=== PATIENT | male | born 1960 | race Caucasian/White ===

== ENCOUNTER 2016-09-10 13:10 | Emergency (ER) | payer OTHER, MEDICARE, BC ==
[~2016-09-10] VITALS: Ht 180.3 cm; Wt 125.0 kg
[2016-09-10] MEDS ORDERED: MORPHINE SULFATE 8 MG/ML INJ ONE (13:21)
[2016-09-10] MEDS ORDERED: SODIUM CHLOR 0.9% 1000 ML INJ 1,000 ML IV SCH (13:22)
[2016-09-10 13:28] VITALS: BP 144/89; PULSE 72; RESP 22; TEMP 97.8; O2SAT 96
[2016-09-10] MEDS ORDERED: SODIUM CHLORIDE 0.9% FLUSH 5 ML FLUSH IVF PRN (13:30)
[2016-09-10 13:35] VITALS: RESP 22; O2SAT 97
[2016-09-10] MEDS ORDERED: LEVO75TA3 PO (13:41)
[2016-09-10 13:45] LABS: AUTOMATED NEUTROPHIL # 14.9 TH/MM3 (1.8-7.7); BASOPHIL # 0.1 TH/MM3 (0-0.2); BASOPHIL % 0.5 % (0.0-2.0); EOSINOPHIL # 0.2 TH/MM3 (0-0.4); EOSINOPHIL % 0.9 % (0.0-4.0); HEMATOCRIT 42.8 % (39.0-51.0); HEMO FLAGS DIFF FINAL; LYMPH % 7.8 % (9.0-44.0); LYMPHOCYTE # 1.4 TH/MM3 (1.0-4.8); MEAN CORPUSCULAR HEMOGLOBIN 30.6 PG (27.0-34.0); MEAN CORPUSCULAR HGB CONC 34.3 % (32.0-36.0); MONO % 6.8 % (0.0-8.0); PLATELET COUNT 273 TH/MM3 (150-450); RED CELL DISTRIBUTION WIDTH 13.4 % (11.6-17.2); WHITE BLOOD COUNT 17.7 TH/MM3 (4.0-11.0)
[2016-09-10 13:50] LABS: I-STAT POTASSIUM 3.9 MMOL/L (3.5-4.9); I-STAT SODIUM 139 MMOL/L (138-146)
[2016-09-10 14:02] LABS: PROTHROMBIN TIME - PATIENT 11.2 SEC (9.8-11.6)
[2016-09-10 14:04] LABS: APTT (PATIENT) 19.2 SEC (24.3-30.1)
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
[2016-09-10] MEDS ORDERED: HYDROmorphone HCL PF 1 MG/ML VIAL IV PUSH ONE (15:15)
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
[2016-09-10] MEDS ORDERED: IOHEXOL 350 MG/ML 10 ML VIAL (for RAD DIAG) IV ONE (15:31)
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
[2016-09-10 15:45] VITALS: RESP 18
[2016-09-10] MEDS ORDERED: LIDOCAINE HCL 1% 50 ML VIAL ONE (16:23)
[2016-09-10] MEDS ORDERED: LIDOCAINE HCL 1% 50 ML VIAL INFIL ONE (16:30)
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
[2016-09-10] MEDS ORDERED: HYDR-3366 PO (17:42)
--- NOTE | 2016-09-10 18:00 | EKG ---
Date Performed: 09/10/2016 Time Performed: 11:31:04 PTAGE: 55 years EKG: Sinus rhythm NORMAL ECG INTERPRETATION BASED ON A DEFAULT AGE OF 40 YEARS NO PREVIOUS TRACING DOCTOR: Sukhdeep Cerda Interpretating Date/Time 09/10/2016 17:58:20
== END 2016-09-10 19:03 | disposition home or self-care (01) ==
LOC: NEPA 13:10
DX: S61.012A Laceration without foreign body of left thumb without damage to nail, initial encounter (principal); S22.41XA Multiple fractures of ribs, right side, initial encounter for closed fracture; S08.0XXA Avulsion of scalp, initial encounter; R07.89 Other chest pain; R06.00 Dyspnea, unspecified; E03.9 Hypothyroidism, unspecified; Z87.39 Personal history of other diseases of the musculoskeletal system and connective tissue; V29.40XA Motorcycle driver injured in collision with unspecified motor vehicles in traffic accident, initial encounter
CPT/HCPCS: 12001; 70450; 70486; 71010; 71260; 72125; 72128; 72131; 72170; 73130; 74177; 80307; 82435; 82565; 82947; 84132; 84295; 84520; 85025; 85610; 85730; 86850; 86900; 86901; 93005; 96361; 96374; 96375; 99285; J1170; J2270; J7030; Q9967